=== PATIENT | male | born 1945 | race Caucasian/White ===

== ENCOUNTER → 2022-08-25 12:51 | Outpatient (CLI) | payer MEDICARE, OTHER, SELFPAY ==
--- NOTE | 2022-08-25 | DI.MRI.S_ITS ---
PROCEDURE: MR HEAD/BRAIN WO CON INDICATIONS: Paresthesia of skin TECHNIQUE: Noncontrast axial T1 spin echo, axial T2 fast spin echo, sagittal and axial FLAIR, coronal T2 fast spin echo, axial gradient echo, axial diffusion and ADC through the brain. COMPARISON: None. FINDINGS: Image quality: Excellent. CSF Spaces: Basal cisterns are patent. No extra-axial fluid collections. Ventricles are normal in size and shape. Brain: No intracranial masses or hemorrhage. [place]/white matter interface is normal. Brainstem appears normal. There are T2/FLAIR hyperintensities within the deep and periventricular white matter, nonspecific and likely representing chronic microvascular ischemic change. Mild global volume loss. Diffusion-weighted images demonstrate no acute ischemic insult. No chronic ischemic insults. Normal intravascular flow voids are present. Skull and face: Calvarium has normal marrow signal. Left under replacement. The orbits are otherwise normal. Sinuses: Sinuses and mastoids are clear. IMPRESSION: No acute infarct. No acute intracranial hemorrhage or masses. No cause for patient's symptoms is identified. Dictated by: Luke Gross M.D. on 08/26/2022 at 8:33 Approved by: Luke Gross M.D. on 08/26/2022 at 8:36
== END ==
PROVIDERS: Referring Provider Psychiatry & Neurology Neurology; Visit Provider Psychiatry & Neurology Neurology
DX: R20.2 Paresthesia of skin (principal)
CPT/HCPCS: 70551